=== PATIENT | male | born 1965 | race Caucasian/White ===

== ENCOUNTER 2023-09-27 20:32 | Emergency (ER) | payer BC, SELFPAY ==
[2023-09-27 20:37] VITALS: BP 143/97
[2023-09-27 21:00] VITALS: BP 121/70
[2023-09-27 21:20] LABS: % Basophils 0.2 % (0-2); % Immature Granulocytes 0.3 % (0-0.5); % Lymphocytes 12.7 % (20.5-51.1); % Monocytes 10.8 % (1.7-9.3); Absolute Lymphocytes 1.4 10^3/uL (1.2-3.4); Absolute Monocytes 1.2 10^3/uL (0.1-0.6); Absolute Neutrophils 8.3 10^3/uL (1.4-6.5); Hematocrit 37.7 % (39.0-52.0); Hemoglobin 13.3 g/dL (13.0-18.0); Mean Corp Hgb Conc. 35.3 g/dL (33.0-37.0); Mean Corpuscular Hgb 30.2 pg (27.0-31.0); Mean Corpuscular Volume 85.5 fL (80.0-94.0); Mean Platelet Volume 8.4 fL (7.4-10.4); Nucleated Red Blood Cells % 0 % (-); Platelet Count 203 10^3/uL (130-400); Red Blood Cell Count 4.41 10^6/uL (4.70-6.10); Red Cell Dist. Width 12.8 % (11.5-14.5); White Blood Cell Count 10.9 10^3/uL (4.8-10.8)
[2023-09-27 21:21] VITALS: BP 121/70
[2023-09-27 21:23] LABS: COVID-19 Antigen Negative (Negative)
[2023-09-27 21:33] LABS: Lactic Acid 1.7 mmol/L (0.7-2.0)
[2023-09-27 21:35] LABS: ALT (SGPT) 31 U/L (0-50); AST (SGOT) 42 U/L (17-59); Alkaline Phosphatase 72 U/L (38-126); Blood Urea Nitrogen 16 mg/dl (9-20); Calcium 8.6 mg/dl (8.4-10.2); Carbon Dioxide 27 mmol/L (22-30); Chloride 93 mmol/L (98-107); Glucose 191 mg/dl (70-99); Potassium 3.7 mmol/L (3.5-5.1); Sodium 127 mmol/L (135-145); Total Bilirubin 0.9 mg/dl (0.2-1.3); Total Protein 6.6 g/dl (6.3-8.2); eGFR > 60.00
--- NOTE | 2023-09-27 21:48 | ED.GENMED ---
History of Present Illness
General
Chief Complaint: Weakness
Source: patient
Exam Limitations: none
Time Seen by Provider: 09/27/23 21:10
Travel History
Have you had any contact with someone who has COVID-19?: No
Do you have any symptoms of coronavirus? Fever > 100 degrees, chills, cough, shortness of breath, sore throat, loss of taste or smell, muscle aches, or headache?: Yes
Symptoms:: fever, sore throat, headache, cough
History of Present Illness
History of Present Illness:
This is a 58 year old male that comes in with c/o congestion and headache. Mom states that he went to on Friday and was told that this is viral. States that she felt he was just not himself and that he was swaying when he walked. States that he
had a fever, nausea, vomiting, and diarrhea on . States that she also has a headache and lightheadedness. Denies any shaking chills, chest pain, SOB, abd pain, urinary burning.
Past History
Past History
ED Past Medical History: GERD, HTN, Hypercholesterolemia, NIDDM and Other (Kidney stones, Hiatal hernia, UTI, Detached retina, )
ED Past Surgical History: Urological (Right kidney stent. ) and Other (Hernia, )
Social History
Tobacco: Non-smoker
Alcohol: None
Drug: None
Personal: Single
Living: with family
Employment: Employed
Family History
Family History: Hypertension
Review of Systems
Review of Systems
All Other Systems: ROS reviewed and negative except as documented in HPI and ROS
Constitutional: Reports fever; Denies chills
EENT: Reports no symptoms
Respiratory: Reports no symptoms; Denies cough or trouble breathing
Cardiac: Reports no symptoms; Denies chest pain
ABD/GI: Reports nausea and vomiting; Denies abdominal pain or diarrhea
: Reports no symptoms; Denies dysuria, frequency or urgency
Musculoskeletal: Reports no symptoms
Skin: Reports no symptoms
Neurological: Reports headache and other (Lightheaded)
Psychiatric: Reports no symptoms
Phy Exam
General Physical Exam
General Presentation: no apparent distress
General age: appears stated age
General Skin: warm and dry
General Habitus: normal
General Mental: alert
General Hydration: appears well hydrated
ENT Exam
ENT Exam: TM's normal, pharynx normal and neck supple
Eye Exam
Eye Exam: EOMI
Cardiovascular Exam
Cardiovascular Exam: regular rate/rhythm, no edema and normal peripheral pulses
Pulmonary Exam
Pulmonary Exam: no respiratory distress, no rales, chest non tender, no crackles, no rhonchi, no cough and other (Exp wheezing throughout)
Gastrointestinal Exam
Gastrointestinal Exam: normal bowel sounds, non tender, soft, no organomegaly, no pulsatile mass and non distended
Musculoskeletal Exam
Musculoskeletal Exam: full ROM and no edema
Skin Exam
Skin Exam: normal color, warm/dry, no rash and no petechia
Psychiatric Exam
Psychiatric Exam: normal mood/affect
Course
Orders/Labs/Results
Orders:
Orders
09/27/23 20:43
Electrocardiogram (*1) Urgent
Reason for Study: Other
Other Reason for Exam: Possible Sepsis
09/27/23 20:44
EKG- Treatment ONCE
CR Chest - 2 Views Urgent
Comment:
Reason For Exam: suspected infection
09/27/23 21:02
COVID-19 Antigen Urgent
Source: Nasal Swab
Complete Blood Count/With Diff Urgent
Comprehensive Metabolic Panel Urgent
Lactic Acid Q4H
Comment: ON ICE, CANCEL 2ND ORDER IF FIRST LACTIC ACID LEVEL <2
Blood Culture Q30M
MYRNA Source: Blood/Venous
Specimen Description:
Comment: FROM 2 SEPARATE SITES
Influenza A+B Rapid Molecular Urgent
MYRNA Source: Nasal Swab
Specimen Description:
09/27/23 21:18
Blood Culture Q30M
MYRNA Source: Blood/Venous
Specimen Description:
Comment: FROM 2 SEPARATE SITES
09/27/23 21:43
Ipratropium/Albuterol Sulfate [Duoneb] 3 ml INH R NOW ONE
09/27/23 21:44
Dexamethasone Sod Phosphate [Decadron] 20 mg IV NOW STA
09/27/23 21:54
0.9% Sodium Chloride 1000 ml [Nss] 1,000 ml IV BOLUS
Ketorolac [Toradol] 30 mg IV NOW STA
09/27/23 22:02
CT Head W/o Iv Contrast Urgent
Comment:
Reason For Exam: headache,
09/28/23 00:45
Lactic Acid Q4H
Comment: ON ICE, CANCEL 2ND ORDER IF FIRST LACTIC ACID LEVEL <2
Abnormal Lab Results
09/27/23
21:02
WBC 10.9 H 10^3/uL
(4.8-10.8)
RBC 4.41 L 10^6/uL
(4.70-6.10)
Hct 37.7 L %
(39.0-52.0)
Absolute Neuts (auto) 8.3 H 10^3/uL
(1.4-6.5)
Absolute Monos (auto) 1.2 H 10^3/uL
(0.1-0.6)
Neutrophils % 76.0 H %
(42.2-75.2)
Lymphocytes % 12.7 L %
(20.5-51.1)
Monocytes % 10.8 H %
(1.7-9.3)
Sodium 127 L mmol/L
(135-145)
Chloride 93 L mmol/L
(98-107)
Glucose 191 H mg/dl
(70-99)
09/27/23 21:02
09/27/23 21:02
Hyponatremia, Chloride low. Glucose nonfasting. COVID negative, Positive for influenza A , Lactic acid normal at 1.7,
Vital Signs
Initial and Last Documented VS:
Initial Vital Signs
Temp Pulse Resp BP Pulse Ox
103.2 F H 114 26 143/97 91
09/27/23 20:37 09/27/23 20:37 09/27/23 20:37 09/27/23 20:37 09/27/23 20:37
Last Documented Vital Signs
Temp Pulse Resp BP Pulse Ox
98.6 F 88 14 110/65 92
09/27/23 23:20 09/27/23 23:00 09/27/23 23:00 09/27/23 23:00 09/27/23 23:00
MDM/Problems Addressed
Differential Diagnosis Includes:
COVID, Influenza,
MDM/Problems Addressed:
This is a 58 year old male that comes in with c/o headache and congestion. States that he went to on Friday and was told that this is a viral illness. Mom states that she felt he was just not acting himself and that swaying when he was walking.
Will get labs, COVID, Influenza, and CT head. Will give IV fluids and Toradol.
Back into see patient. Patient states that he is feeling better. Patient fever has broke. Explained that his Sodium is a little low and that he can eat canned soup or boxed food to help bring this up. Patient to drink 8-8oz glasses of water daily
and use Tylenol and Ibuprofen for fever and body aches. Follow up with the family doctor. Return with any concerns.
Chronic conditions affecting care:
NA
Acute Exacerbation and/or Progression of Chronic Illness:
NA
*Radiology
Radiology exam reviewed: preliminary read by ED provider (Chest- negative for active disease) and radiology read reviewed (CT head- Night hawk- No acute intracranial hemorrhage. No evidence of acute infarct. Ventricle are normal without
hydrocephalus. Right eye scleral buckle. Visualized paranasal sinuses and mastoids are clear. No calvarial lesion )
*Pulse Oximetry
Patient hypoxic: no
*EKG
Interpreted by ED Provider?: Yes
Heart Rate: 111
Rate: tachycardiac
Rhythm: sinus
[place]: normal axis
Interval: normal interval
QRS Pattern: normal QRS
Ischemia: no ischemia
*Experimental Aircraft [employer]ic Interpretation
Rate: tachycardiac
Heart Rate: 103
*Critical Care Note
Total Time (30-74mins, 75-104mins- exclusive of procedures): Not Applicable
ED Attending Note
-
Portions of this chart may have been created with voice recognition software.� Occasional wrong word or��sound alike� substitutions may have occurred due to the inherent limitations of voice recognition software.
Discharge Plan
Departure
Patient Disposition: Home (Routine Discharge)
Date of Disposition: 09/28/23
Time of Disposition: 00:05
Patient with high blood pressure during this ER visit?: No
Condition: Good
Covid-19: Negative COVID-19
Discharge Problem:
Influenza A
Instructions: Flu, Adult (DC)
Prescriptions:
No Action
aspirin [Baby Aspirin] 81 MG tablet,chewable
81 mg PO DAILY
atorvastatin [Lipitor] 10 MG tablet
10 mg PO DAILY
lisinopril-hydrochlorothiazide 1 EACH tablet
1 ea PO DAILY
metformin 1,000 MG tablet
1,000 mg PO BID
fluticasone propionate 1 SPRAY spray,suspension
1 spray intranasal DAILY
cholecalciferol (vitamin D3) [Vitamin D3] 25 MCG capsule
25 mcg PO DAILY
Rybelsus 7 MG tablet
7 mg PO DAILY
Referrals:
UNKNOWN - PT DOES,NOT KNOW [Unknown Provider] -
Activity Restrictions/Additional Instructions:
As discussed, your blood work shows that your sodium is a little low. Please try eating come canned soup or boxed food as this is high in sodium. You have Influenza A. This is a viral illness. Please increase your water intake to 8-8z glasses daily.
You may use Tylenol 1000mg every 6 hours for fever and Alternate with Ibuprofen 400mg every 6 hours with food. You have also been given an Albuterol inhaler with a spacer to use for increased coughing or wheezing. You may use this every 4 hours if
needed. Please do not over use as this can cause you to feel more short of breath. IF YOU HAVE ANY OTHER CONCERNS PLEASE RETURN TO THE EMERGENCY ROOM
Interventions
Interventions:
*Risk Screen - Suicide Last Done: 09/27/23 20:37
*General Assessment Last Done: 09/27/23 20:37
*Neglect/Abuse Screening Last Done: 09/27/23 20:37
*ED COVID-19 Vaccine History Last Done: 09/27/23 20:37
ED- Cardiac Assessment Last Done: 09/27/23 21:26
ED- Neurological Assessment Last Done: 09/27/23 21:25
ED- Pulmonary Assessment Last Done: 09/27/23 21:26
[2023-09-27 22:00] VITALS: BP 112/73
[2023-09-27] MEDS: NSS 1000 IV (22:06)
[2023-09-27] MEDS: TORADOL 30 MG IV (22:08)
[2023-09-27] MEDS: DECADRON 20 MG IV (22:10)
[2023-09-27] MEDS: DUONEB 3 ML INH (22:12)
[2023-09-27 22:13] VITALS: BP 112/73
[2023-09-27 23:00] VITALS: BP 110/65
[2023-09-28 00:26] VITALS: BP 122/75
[2023-09-28] MEDS: ProAIR HFA INHALER 2 PUFF INH (00:36)
== END 2023-09-28 00:40 | disposition home or self-care (01) ==
LOC: EMR 20:32
PROVIDERS: EMERGENCY PHYSICIAN Emergency Medicine; FAMILY PHYSICIAN Family Medicine
DX: J10.1 Influenza due to other identified influenza virus with other respiratory manifestations (principal); R42 Dizziness and giddiness; R11.2 Nausea with vomiting, unspecified; R51.9 Headache, unspecified; R19.7 Diarrhea, unspecified; Z11.52 Encounter for screening for COVID-19; E11.9 Type 2 diabetes mellitus without complications; E78.00 Pure hypercholesterolemia, unspecified; I10 Essential (primary) hypertension; K21.9 Gastro-esophageal reflux disease without esophagitis; Z87.440 Personal history of urinary (tract) infections; Z87.442 Personal history of urinary calculi; Z79.82 Long term (current) use of aspirin; Z79.84 Long term (current) use of oral hypoglycemic drugs
CPT/HCPCS: 99284; 96374; 96375; 96361; 94640 ×2; 70450; 71046; 80053; 83605; 85025; 87040; 87502; 87811; 93005

== ENCOUNTER 2023-10-01 08:48 | Emergency (ER) | payer BC, SELFPAY ==
[2023-10-01 09:06] VITALS: BP 105/69
[2023-10-01] MEDS: NSS 1000 IV (11:43)
[2023-10-01 11:54] VITALS: BP 104/68; BP 108/71; BP 108/75; PULSE 74; PULSE 84; PULSE 92
--- NOTE | 2023-10-01 11:57 | ED.GENMED ---
History of Present Illness
General
Chief Complaint: Cold/Flu/URI Symptoms
Source: patient and family
Exam Limitations: none
Time Seen by Provider: 10/01/23 11:12
Nursing documentation reviewed up to this point in time: agreed with
Travel History
Have you had any contact with someone who has COVID-19?: No
Do you have any symptoms of coronavirus? Fever > 100 degrees, chills, cough, shortness of breath, sore throat, loss of taste or smell, muscle aches, or headache?: No
History of Present Illness
History of Present Illness:
58-year-old male states he was standing, talking to a coworker around 8 a.m., when he developed the sudden onset of lightheadedness, Vomited 'a little,' felt warm, sat down and episode passed after 10 minutes. Has felt asymptomatic since. Ate
cereal prior to going to work
Seen here 4 days ago and diagnosed with flu. 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 Still with sinus congestion and cough. Denies fever, chills, CP, SOB, abd pain. Denies N/V/D/C.
Past History
Past History
ED Past Medical History: GERD, HTN, Hypercholesterolemia, NIDDM and Other (Kidney stones, Hiatal hernia, UTI, Detached retina, )
ED Past Surgical History: Urological (Right kidney stent. ) and Other (Hernia, )
Social History
Tobacco: Non-smoker
Alcohol: None
Drug: None
Personal: Single
Living: with family
Employment: Employed
Family History
Family History: Hypertension
Review of Systems
Review of Systems
Allergies reviewed?: Yes
All Other Systems: ROS reviewed and negative except as documented in HPI and ROS
Constitutional: Denies fever, fatigue or chills
EENT: Reports other (sinus congestion past week); Denies sore throat
Respiratory: Reports cough (past week, Flu dx 4 days ago); Denies trouble breathing
Cardiac: Denies chest pain
ABD/GI: Denies abdominal pain, nausea, vomiting, diarrhea, constipated or anorexia
: Denies dysuria or difficulty voiding
Musculoskeletal: Reports no symptoms
Skin: Reports no symptoms
Neurological: Reports other (episode lightheadedness this a.m.); Denies dizzy, headache or weakness
Phy Exam
Physical Exam
Physical Exam:
GENERAL: No acute distress. A&Ox3.
CONSTITUTIONAL: Afebrile.
EYES: clear, conjunctivae normal
ENMT: moist mucus membranes, Pharynx nl
RESPIRATORY: Regular respirations, nonlabored, lungs clear. Occasional cough.
CARDIOVASCULAR: Regular rate and rhythm, no murmurs, no rubs.
GI: Soft, nontender, normal BS
MUSCULOSKELETAL: Moves with ease. Well perfused.
SKIN: Warm, dry, pink
PSYCH: Normal mood and affect. Well kept, interactive and appropriate
NEUROLOGIC: Awake, alert and oriented. No focal neurological deficits
Course
Orders/Labs/Results
Orders:
Orders
10/01/23 11:25
0.9% Sodium Chloride 1000 ml [Nss] 1,000 ml IV BOLUS
10/01/23 11:26
Electrocardiogram (*1) Urgent
Reason for Study: Vertigo / Dizzy
EKG- Treatment ONCE
10/01/23 11:27
Orthostatic VS- Treatment ONCE
10/01/23 11:43
Complete Blood Count/With Diff Urgent
Comprehensive Metabolic Panel Urgent
Abnormal Lab Results
10/01/23
11:43
RBC 4.62 L 10^6/uL
(4.70-6.10)
Absolute Monos (auto) 0.9 H 10^3/uL
(0.1-0.6)
Monocytes % 12.8 H %
(1.7-9.3)
Chloride 92 L mmol/L
(98-107)
Carbon Dioxide 31 H mmol/L
(22-30)
BUN 26 H mg/dl
(9-20)
Glucose 128 H mg/dl
(70-99)
ALT 52 H U/L
(0-50)
10/01/23 11:43
10/01/23 11:43
Vital Signs
Initial and Last Documented VS:
Initial Vital Signs
Temp Pulse Resp BP Pulse Ox
98.8 F 89 18 105/69 95
10/01/23 09:06 10/01/23 09:06 10/01/23 09:06 10/01/23 09:06 10/01/23 09:06
Last Documented Vital Signs
Temp Pulse Resp BP Pulse Ox
98.8 F 89 18 105/69 95
10/01/23 09:06 10/01/23 09:06 10/01/23 09:06 10/01/23 09:06 10/01/23 09:06
MDM/Problems Addressed
Differential Diagnosis Includes:
dehydration, residual flu symptoms
MDM/Problems Addressed:
58-year-old male states he was standing, talking to a coworker around 8 a.m., when he developed the sudden onset of lightheadedness, Vomited 'a little,' felt warm, sat down and episode passed after 10 minutes. Has felt asymptomatic since. Ate
cereal prior to going to work
Seen here 4 days ago and diagnosed with flu. 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 Still with sinus congestion and cough. Denies fever, chills, CP, SOB, abd pain. Denies N/V/D/C.
10/01/2023 1333 PM
CBC normal
CMP with no clinically significant abnormality
Orthostatics negative
EKG NSR
After IV fluids patient is feeling well
Will discharge to the care of his parents with whom he lives.
*EKG
EKG Intrepretation Date: 10/01/23
Interpretation: normal
Rate: normal
Rhythm: sinus
[place]: normal axis
Interval: normal interval
QRS Pattern: normal QRS
Ischemia: no ischemia
*Critical Care Note
Total Time (30-74mins, 75-104mins- exclusive of procedures): Not Applicable
ED Attending Note
-
Portions of this chart may have been created with voice recognition software.� Occasional wrong word or��sound alike� substitutions may have occurred due to the inherent limitations of voice recognition software.
Discharge Plan
Departure
Patient Disposition: Home (Routine Discharge)
Date of Disposition: 10/01/23
Time of Disposition: 13:34
Patient with high blood pressure during this ER visit?: No
Condition: Good
Discharge Problem:
Acute dehydration
Instructions: Viral Syndrome (DC), Dehydration, Adult ED
Prescriptions:
No Action
aspirin [Baby Aspirin] 81 MG tablet,chewable
81 mg PO DAILY
atorvastatin [Lipitor] 10 MG tablet
10 mg PO DAILY
lisinopril-hydrochlorothiazide 1 EACH tablet
1 ea PO DAILY
metformin 1,000 MG tablet
1,000 mg PO BID
fluticasone propionate 1 SPRAY spray,suspension
1 spray intranasal DAILY
cholecalciferol (vitamin D3) [Vitamin D3] 25 MCG capsule
25 mcg PO DAILY
Rybelsus 7 MG tablet
7 mg PO DAILY
Referrals:
Edilberto Broussard DO [Family Provider] -
Stand Alone Forms: Return to Work
Activity Restrictions/Additional Instructions:
As we discussed, your symptoms of lightheadedness today is most likely from dehydration and residual from your diagnosis of the flu.
Your lab work shows that you are mildly dehydrated. Be sure to drink at least eight 8 ounce glasses of fluid a day
No work the rest of this week.
Interventions
Interventions:
*Risk Screen - Suicide Last Done: 10/01/23 09:06
*General Assessment Last Done: 10/01/23 09:06
*Neglect/Abuse Screening Last Done: 10/01/23 09:06
ED- Fall Risk Assessment Last Done: 10/01/23 11:52
*ED COVID-19 Vaccine History Last Done: 10/01/23 09:06
*Nursing Disposition Last Done: 10/01/23 13:50
ED- Pulmonary Assessment Last Done: 10/01/23 12:30
Discharge Date and Time
Discharge Date/Time: 10/01/23 13:50
[2023-10-01 12:02] LABS: % Basophils 0.3 % (0-2); % Immature Granulocytes 0.3 % (0-0.5); % Lymphocytes 34.3 % (20.5-51.1); % Monocytes 12.8 % (1.7-9.3); % Neutrophils 50.3 % (42.2-75.2); Absolute Eosinophils 0.1 10^3/uL (0-0.7); Absolute Lymphocytes 2.4 10^3/uL (1.2-3.4); Absolute Monocytes 0.9 10^3/uL (0.1-0.6); Absolute Neutrophils 3.5 10^3/uL (1.4-6.5); Hematocrit 41.2 % (39.0-52.0); Hemoglobin 14.2 g/dL (13.0-18.0); Mean Corp Hgb Conc. 34.5 g/dL (33.0-37.0); Mean Corpuscular Hgb 30.7 pg (27.0-31.0); Mean Corpuscular Volume 89.2 fL (80.0-94.0); Mean Platelet Volume 8.7 fL (7.4-10.4); Nucleated Red Blood Cells % 0 % (-); Platelet Count 222 10^3/uL (130-400); Red Blood Cell Count 4.62 10^6/uL (4.70-6.10); Red Cell Dist. Width 12.6 % (11.5-14.5)
[2023-10-01 12:20] LABS: ALT (SGPT) 52 U/L (0-50); AST (SGOT) 57 U/L (17-59); Albumin 3.8 g/dl (3.5-5.0); Alkaline Phosphatase 76 U/L (38-126); Blood Urea Nitrogen 26 mg/dl (9-20); Calcium 9.6 mg/dl (8.4-10.2); Carbon Dioxide 31 mmol/L (22-30); Chloride 92 mmol/L (98-107); Glucose 128 mg/dl (70-99); Potassium 3.7 mmol/L (3.5-5.1); Sodium 136 mmol/L (135-145); Total Bilirubin 0.8 mg/dl (0.2-1.3); Total Protein 6.4 g/dl (6.3-8.2); eGFR > 60.00
== END 2023-10-01 13:50 | disposition home or self-care (01) ==
LOC: EMR 08:48
PROVIDERS: Registered Nurse; EMERGENCY PHYSICIAN Emergency Medicine; FAMILY PHYSICIAN Family Medicine
DX: E86.0 Dehydration (principal)
CPT/HCPCS: 99284; 96360; 80053; 85025; 93005

== ENCOUNTER → 2024-04-30 16:26 | Outpatient (REF) | payer BC, SELFPAY | LOC: RAD 16:26 | PROVIDERS: ATTENDING PHYSICIAN Surgery; FAMILY PHYSICIAN Family Medicine; REFERRING PHYSICIAN Internal Medicine | DX: N20.0 Calculus of kidney (principal) | CPT/HCPCS: 76775 ==

== ENCOUNTER → 2025-03-29 07:04 | Outpatient (REF) | payer BC, SELFPAY | LOC: HWRAD 07:04 | PROVIDERS: ATTENDING PHYSICIAN Family Medicine | DX: R10.32 Left lower quadrant pain (principal) | CPT/HCPCS: 76700 ==

== ENCOUNTER 2025-07-07 09:17 | Emergency (ER) | payer BC, SELFPAY ==
[2025-07-07 09:19] VITALS: BP 116/76
--- NOTE | 2025-07-07 10:06 | ED.GENMED ---
History of Present Illness
General
Chief Complaint: Abdominal Symptoms
Time Seen by Provider: 07/07/25 09:43
History of Present Illness
History of Present Illness:
59-year-old male presents to the emergency department for evaluation of left-sided abdominal pain as well as nausea and vomiting. He states for the past several weeks he has had URI symptoms, was initially seen in urgent care last week and then
ultimately by his primary doctor earlier this week and diagnosed with sinusitis, he is currently on a course of doxycycline for this. Over the past few days he has had intermittent left flank pain with nausea and vomiting. No fevers or chills.
Has a history of kidney stones but is uncertain if this feels similar.
Past History
Past History
ED Past Medical History: GERD, HTN, Hypercholesterolemia, NIDDM and Other (Kidney stones, Hiatal hernia, UTI, Detached retina, )
ED Past Surgical History: Urological (Right kidney stent. ) and Other (Hernia, )
Social History
Tobacco: Non-smoker
Alcohol: None
Drug: None
Personal: Single
Living: with family
Employment: Employed
Family History
Family History: Hypertension
Review of Systems
Review of Systems
Allergies reviewed?: Yes
All Other Systems: ROS reviewed and negative except as documented in HPI and ROS
Phy Exam
Physical Exam
Physical Exam:
GEN: Well appearing, NAD, WDWN
HEENT: Oral mucosa moist, no scleral icterus
Cardiac: Regular rate and rhythm, no murmur
Lung: No respiratory distress, no tachypnea, lungs clear to auscultation bilaterally
Abdomen: Soft, grossly nontender
MSK: No gross deformity or injuries
Skin: Good color, no pallor or jaundice, no rashes
Neuro: AO x3, moves all extremities freely
Psych: Calm, cooperative
Course
Orders/Labs/Results
Orders:
Orders
07/07/25 10:11
Complete Blood Count/With Diff Urgent
Comprehensive Metabolic Panel Urgent
07/07/25 10:32
Urinalysis Reflex To Culture Urgent
Date Specimen was Collected: 07/07/25
Time Specimen was Collected: 10:14
Urine Microscopic Reflex Cult Urgent
07/07/25 11:20
CT Abd/pel Without Iv Or Oral Urgent
Comment:
Reason For Exam: L flank pain
Abnormal Lab Results
07/07/25 07/07/25
10:11 10:32
RBC 4.67 L 10^6/uL
(4.70-6.10)
Sodium 133 L mmol/L
(135-145)
Chloride 96 L mmol/L
(98-107)
Carbon Dioxide 32 H mmol/L
(22-30)
Urine Ketones 1+ A
(Negative)
Urine Glucose 4+ A
(Negative)
Urine Albumin (Reflex) 1+ A
(Neg - Trace)
07/07/25 10:11
07/07/25 10:11
Vital Signs
Initial and Last Documented VS:
Initial Vital Signs
Temp Pulse Resp BP Pulse Ox
97.8 F 79 18 116/76 100
07/07/25 09:19 07/07/25 09:19 07/07/25 09:19 07/07/25 09:19 07/07/25 09:19
Last Documented Vital Signs
Temp Pulse Resp BP Pulse Ox
97.8 F 79 18 104/68 98
07/07/25 09:19 07/07/25 09:19 07/07/25 09:19 07/07/25 12:00 07/07/25 12:30
MDM/Problems Addressed
MDM/Problems Addressed:
Labs are reassuring and workup is negative for renal stone. No clear cause of his upper abdominal pain at this point. Given that labs are reassuring agree with continuing outpatient oral antibiotics
*Pulse Oximetry
SaO2: 100
Oxygen Mode of Delivery: Room air
Patient hypoxic: no
*Critical Care Note
Total Time (30-74mins, 75-104mins- exclusive of procedures): Not Applicable
ED Attending Note
-
Portions of this chart may have been created with voice recognition software.� Occasional wrong word or��sound alike� substitutions may have occurred due to the inherent limitations of voice recognition software.
Discharge Plan
Departure
Patient Disposition: Home (Routine Discharge)
Date of Disposition: 07/07/25
Time of Disposition: 13:07
Patient with high blood pressure during this ER visit?: No
Discharge Problem:
Acute upper respiratory infection
Instructions: Upper respiratory infection in adults - ED (DC)
Prescriptions:
No Action
aspirin [Baby Aspirin] 81 MG tablet,chewable
81 mg PO DAILY
atorvastatin [Lipitor] 10 MG tablet
10 mg PO DAILY
lisinopril-hydrochlorothiazide 1 EACH tablet
1 ea PO DAILY
metformin 1,000 MG tablet
1,000 mg PO BID
fluticasone propionate 1 SPRAY spray,suspension
1 spray intranasal DAILY
cholecalciferol (vitamin D3) [Vitamin D3] 25 MCG capsule
25 mcg PO DAILY
Rybelsus 7 MG tablet
7 mg PO DAILY
Referrals:
Edilberto Broussard DO [Family Provider, Family Practice]
Interventions
Interventions:
*Risk Screen - Suicide Last Done: 07/07/25 09:19
*General Assessment Last Done: 07/07/25 10:47
*Neglect/Abuse Screening Last Done: 07/07/25 10:47
*ED COVID-19 Vaccine History Last Done: 07/07/25 10:47
*ED Influenza Vaccine History Last Done: 07/07/25 10:47
*Nursing Disposition Last Done: 07/07/25 13:41
[id number] Assessment Last Done: 07/07/25 10:47
Discharge Date and Time
Discharge Date/Time: 07/07/25 13:42
Print Language: GEORGI[place]
[2025-07-07 10:21] LABS: Hematocrit 41.8 % (39.0-52.0); Hemoglobin 14.3 g/dL (13.0-18.0); Mean Corp Hgb Conc. 34.2 g/dL (33.0-37.0); Mean Corpuscular Volume 89.5 fL (80.0-94.0); Nucleated Red Blood Cells % 0 % (-); Platelet Count 322 10^3/uL (130-400); Red Cell Dist. Width 12.5 % (11.5-14.5)
[2025-07-07 10:30] VITALS: BP 104/70
[2025-07-07 10:49] LABS: ALT (SGPT) 19 U/L (0-50); AST (SGOT) 22 U/L (17-59); Albumin 4.5 g/dl (3.5-5.0); Alkaline Phosphatase 78 U/L (38-126); Blood Urea Nitrogen 19 mg/dl (9-20); Calcium 9.6 mg/dl (8.4-10.2); Carbon Dioxide 32 mmol/L (22-30); Chloride 96 mmol/L (98-107); Glucose 90 mg/dl (70-99); Potassium 4.2 mmol/L (3.5-5.1); Sodium 133 mmol/L (135-145); Total Protein 7.2 g/dl (6.3-8.2); eGFR > 60.00
[2025-07-07 10:51] LABS: Urine Character Clear (Clear)
[2025-07-07 11:00] VITALS: BP 98/69
[2025-07-07 11:51] LABS: Urine Squamous Cell 0-2 /LPF (Few)
[2025-07-07 11:52] LABS: Urine Red Blood Cell 0-2 /HPF (0-2); Urine White Cell 0-2 /HPF (0-5)
[2025-07-07 12:00] VITALS: BP 104/68
== END 2025-07-07 13:42 | disposition home or self-care (01) ==
LOC: EMR 09:17
PROVIDERS: Physician Assistant; EMERGENCY PHYSICIAN Student in an Organized Health Care Education/Training Program; FAMILY PHYSICIAN Family Medicine
DX: J06.9 Acute upper respiratory infection, unspecified (principal); R10.10 Upper abdominal pain, unspecified; R11.2 Nausea with vomiting, unspecified; E11.9 Type 2 diabetes mellitus without complications; E78.00 Pure hypercholesterolemia, unspecified; I10 Essential (primary) hypertension; Z87.442 Personal history of urinary calculi
CPT/HCPCS: 99284; 74176; 80053; 81003; 81015; 85025

== ENCOUNTER 2025-07-14 11:02 | Emergency (ER) | payer BC, SELFPAY ==
[2025-07-14 11:07] VITALS: BMI 27.1
[2025-07-14 11:24] LABS: Hematocrit 44.5 % (39.0-52.0); Hemoglobin 14.3 g/dL (13.0-18.0); Mean Corp Hgb Conc. 32.1 g/dL (33.0-37.0); Mean Corpuscular Volume 91.9 fL (80.0-94.0); Nucleated Red Blood Cells % 0 % (-); Platelet Count 327 10^3/uL (130-400); Red Cell Dist. Width 12.7 % (11.5-14.5)
[2025-07-14 11:31] LABS: ALT (SGPT) 20 U/L (0-50); AST (SGOT) 24 U/L (17-59); Albumin 4.8 g/dl (3.5-5.0); Alkaline Phosphatase 72 U/L (38-126); Blood Urea Nitrogen 21 mg/dl (9-20); Calcium 9.6 mg/dl (8.4-10.2); Carbon Dioxide 29 mmol/L (22-30); Chloride 99 mmol/L (98-107); Estimated Creatinine Clearance 52 ml/min; Glucose 87 mg/dl (70-99); Lipase 112 U/L (23-300); Potassium 4.1 mmol/L (3.5-5.1); Sodium 135 mmol/L (135-145); Total Protein 7.6 g/dl (6.3-8.2); eGFR > 60.00
--- NOTE | 2025-07-14 11:38 | ED.GENMED ---
History of Present Illness
General
Chief Complaint: Abdominal Symptoms
Source: patient
Exam Limitations: none
Time Seen by Provider: 07/14/25 11:04
History of Present Illness
History of Present Illness:
60-year-old male presents for reevaluation. He was here a week ago for left-sided abdominal pain and URI symptoms. Diagnosis sinusitis and started on doxycycline. He started the medicine 2 days ago however 3 days ago he started vomiting. He
notes intermittent pain to the left mid abdomen since then. No chest pain is of breath. He has had loose stool and diarrhea. He denies any urinary symptoms. Does have a history of kidney stones and he was noted to have a nonobstructing
intrarenal stone in the left kidney last visit on his CAT scan. No other complaints at this time
Past History
Past History
ED Past Medical History: GERD, HTN, Hypercholesterolemia, NIDDM and Other (Kidney stones, Hiatal hernia, UTI, Detached retina, )
ED Past Surgical History: Urological (Right kidney stent. ) and Other (Hernia, )
Social History
Tobacco: Non-smoker
Alcohol: None
Drug: None
Personal: Single
Living: with family
Employment: Employed
Family History
Family History: Hypertension
Phy Exam
Physical Exam
Physical Exam:
General: Well-appearing male no acute respiratory distress
HEENT normal cephalic atraumatic
Heart: Regular rate and rhythm
Lungs: Clear no wheeze
Abdomen is soft mildly tender to the left mid abdomen no guarding or rebound nondistended extremities: No cyanosis
Course
Orders/Labs/Results
Orders:
Orders
07/14/25 11:04
Electrocardiogram (*1) Urgent
Reason for Study: Abdominal Pain
EKG- Treatment ONCE
Urinalysis Reflex To Culture Urgent
Date Specimen was Collected: 07/14/25
Time Specimen was Collected: 11:04
07/14/25 11:09
CBC/With Diff [Complete Blood Count/With Diff] Urgent
Comprehensive Metabolic Panel Urgent
Lipase Urgent
07/14/25 11:20
CT Abd/pelvis W Iv Cont Urgent
Comment:
Reason For Exam: llq pain
Abnormal Lab Results
07/14/25
11:09
MCHC 32.1 L g/dL
(33.0-37.0)
Absolute Monos (auto) 0.7 H 10^3/uL
(0.1-0.6)
BUN 21 H mg/dl
(9-20)
07/14/25 11:09
07/14/25 11:09
Vital Signs
Initial and Last Documented VS:
Initial Vital Signs
Pulse Ox
100
07/14/25 11:05
Last Documented Vital Signs
Pulse Resp Pulse Ox
75 13 100
07/14/25 11:30 07/14/25 11:30 07/14/25 11:40
MDM/Problems Addressed
Differential Diagnosis Includes:
Patient presents with vomiting and left mid abdominal pain similar to prior presentation a week ago. Currently on doxycycline but symptoms started prior to the onset of the doxycycline. Noncontrast CT scan performed last week demonstrated
nonobstructing left intrarenal stone. Given persistence of pain and vomiting we will reimage in this time in the form of IV contrast CT recheck labs. Is given Zofran and route and is feeling somewhat better.
*Pulse Oximetry
SaO2: 100
Oxygen Mode of Delivery: Room air
Patient hypoxic: no
*Critical Care Note
Total Time (30-74mins, 75-104mins- exclusive of procedures): Not Applicable
Update Note
Update Note:
Workup here with normal labs negative CT patient nontoxic in really not concerning on exam. No indication for admission. Suspect underlying potential viral illness. Symptoms started before he had the antibiotics I do not think antibiotics are the
cause. Stable for discharge
ED Attending Note
-
Portions of this chart may have been created with voice recognition software.� Occasional wrong word or��sound alike� substitutions may have occurred due to the inherent limitations of voice recognition software.
Discharge Plan
Departure
Patient Disposition: Home (Routine Discharge)
Date of Disposition: 07/14/25
Time of Disposition: 13:56
Patient with high blood pressure during this ER visit?: No
Discharge Problem:
Vomiting
Prescriptions:
New
ondansetron 4 mg tablet,disintegrating
4 mg PO Q8H PRN (Reason: nausea and vomiting) Qty: 10 0RF
No Action
aspirin [Baby Aspirin] 81 MG tablet,chewable
81 mg PO DAILY
atorvastatin [Lipitor] 10 MG tablet
10 mg PO DAILY
lisinopril-hydrochlorothiazide 1 EACH tablet
1 ea PO DAILY
metformin 1,000 MG tablet
1,000 mg PO BID
fluticasone propionate 1 SPRAY spray,suspension
1 spray intranasal DAILY
cholecalciferol (vitamin D3) [Vitamin D3] 25 MCG capsule
25 mcg PO DAILY
Rybelsus 7 MG tablet
7 mg PO DAILY
Referrals:
Edilberto Broussard DO [Family Provider, Family Practice]
Uri Santos DO [Active, Gastroenterology]
Activity Restrictions/Additional Instructions:
Use Zofran if needed for nausea. Plenty of fluids. Eat a bland diet. Follow-up with GI if symptoms persist
Interventions
Interventions:
*Risk Screen - Suicide Last Done: 07/14/25 11:05
*General Assessment Last Done: 07/14/25 11:05
*Neglect/Abuse Screening Last Done: 07/14/25 11:05
*ED COVID-19 Vaccine History Last Done: 07/14/25 11:05
*ED Influenza Vaccine History Last Done: 07/14/25 11:05
BS-Invsee-Sksbueiiuf Assessment Last Done: 07/14/25 11:20
Discharge Date and Time
Print Language: AZERI
== END 2025-07-14 14:10 | disposition home or self-care (01) ==
LOC: EMR 11:02
PROVIDERS: Physician Assistant; EMERGENCY PHYSICIAN Emergency Medicine; FAMILY PHYSICIAN Family Medicine
DX: R11.10 Vomiting, unspecified (principal); R10.9 Unspecified abdominal pain; E11.9 Type 2 diabetes mellitus without complications; E78.00 Pure hypercholesterolemia, unspecified; I10 Essential (primary) hypertension; Z87.442 Personal history of urinary calculi
CPT/HCPCS: 99284; 74177; 80053; 83690; 85025; 93005; Q9967